=== PATIENT | male | born 1985 | race Hispanic/Latino ===

== ENCOUNTER 2018-09-09 20:01 | Emergency (ER) | payer BC ==
[~2018-09-09] VITALS: Ht 170.2 cm; Wt 96.6 kg
--- OUTSIDE RECORDS SUMMARY | 2018-09-09 20:04 | XMS REPORT | Clinical Summary ---
Author Author [facility] Address Unknown Phone Unavailable Care Team Providers Care Operational Risk Analyst Name Role Phone Amador Samayoa MD PCP Allergies Active Allergy Reactions Severity Noted Date Comments Penicillins 03/31/2018 Patient does not know what kind of allergy.Pt states that as per his MOM he is allergic to PCN. Current Medications Prescription Sig. Disp. Refills Start End Date Status Date pioglitazone (ACTOS) 30 Take 1 tablet (30 mg 30 tablet 0 04/02/20 05/02/20 MG tablet total) by mouth daily for 18 18 30 days. insulin DETEMIR (LEVEMIR) Inject 12 Units under the 3.6 mL 2 04/02/20 05/02/20 100 unit/mL (3 mL) skin nightly for 30 days. 18 18 insulin pen pen needle, diabetic 31 1 Units nightly for 30 50 each 2 04/02/20 05/02/20 gauge x 3/16" needle days. 18 18 gemfibrozil (LOPID) 600 Take 1 tablet (600 mg 60 tablet 0 04/02/20 05/02/20 MG tablet total) by mouth 2 (two) 18 18 times a day before meals for 30 days. Active Problems Problem Noted Date Pancreatitis 03/31/2018 Encounters Date Type Specialty Care Team Description 04/15/2018 Consult Weight Management Asked, No Pcp Insulin-requiring or Amador Samayoa, dependent type II diabetes mellitus Carmela Marley RD (Primary Dx); Appendicitis, unspecified appendicitis type; Hyperglyceridemia 04/02/2018 Patient Quality Monika Cuevas, [facility] Outreach 03/31/2018 [facility] General Internal Medicine Christiano Stewart MD Alcohol- induced acute - Encounter pancreatitis without 04/02/2018 infection or necrosis (Primary Dx); Type 2 diabetes mellitus without complication, without long-term current use of insulin after 09/08/2017 Family History Medical History Relation Name Comments Diabetes Father Diabetes Mother Relation Name Status Comments Father Mother Social History Tobacco Use Types Packs/Day Years Used Date Light Tobacco Smoker 14 Smokeless Tobacco: Never Used Tobacco Cessation: Counseling Given: Yes Comments: Smoke 1 pack/2 weeks Alcohol Use Drinks/Week oz/Week Comments Yes 50 beers/week( on the weekend) Sex Assigned at Date Recorded Not on file Last Filed Vital Signs Vital Sign Reading Time Taken Blood Pressure 142/90 04/02/2018 11:21 AM CDT Pulse 88 04/02/2018 11:21 AM CDT Temperature 36.3 C (97.4 F) 04/02/2018 11:21 AM CDT Respiratory Rate 15 04/02/2018 11:21 AM CDT Oxygen Saturation 99% 04/02/2018 11:21 AM CDT Inhaled Oxygen - - Concentration Weight 95.8 kg (211 lb 1.6 oz) 04/15/2018 11:26 AM CDT Height 170.2 cm (5' 7") 04/15/2018 11:26 AM CDT Body Mass Index 33.06 04/15/2018 11:26 AM CDT Plan of Treatment Health Maintenance Due Date Last Done Comments DIABETIC FOOT EXAM 1995 DIABETIC RETINAL EYE EXAM 1995 URINE MICROALBUMIN 1995 INFLUENZA VACCINE 06/22/2018 Goals Goal Patient Associated Recent Progress Patient-Stat Author Goal Type Problems ed? HM WM Monitoring General No Carmela Marley RD Note: 04/15/18 Active Will monitor blood glucose levels before meals and 2 hours after each meal HM WM Nutrition General No Carmela Marley RD Note: 04/15/18 Active Will consume 45-60 grams of carbohydrates at meals and 15 grams as needed as snacks if more than 5 hours between meals or feelings of hunger HM WM Taking Medications General No Carmela Marley RD Note: 04/15/18 Active Will continue to take his Actos and Levemir as ordered Procedures Procedure Name Priority Date/Time Associated Diagnosis Comments ZZESTIMATED GFR Timed 04/02/2018 Results for this 1:51 PM CDT procedure are in the results section. BASIC METABOLIC PANEL Timed 04/02/2018 Results for this 1:51 PM CDT procedure are in the results section. POC GLUCOSE Routine 04/02/2018 Results for this 11:25 AM CDT procedure are in the results section. POC GLUCOSE Routine 04/02/2018 Results for this 7:47 AM CDT procedure are in the results section. ZZESTIMATED GFR Routine 04/02/2018 Results for this 6:52 AM CDT procedure are in the results section. BASIC METABOLIC PANEL Routine 04/02/2018 Results for this 6:52 AM CDT procedure are in the results section. POC GLUCOSE Routine 04/02/2018 Results for this 4:05 AM CDT procedure are in the results section. POC GLUCOSE Routine 04/02/2018 Results for this 12:00 AM CDT procedure are in the results section. POC GLUCOSE Routine 04/01/2018 Results for this 7:50 PM CDT procedure are in the results section. POC GLUCOSE Routine 04/01/2018 Results for this 4:12 PM CDT procedure are in the results section. POC GLUCOSE Routine 04/01/2018 Results for this 11:56 AM CDT procedure are in the results section. ZZESTIMATED GFR Routine 04/01/2018 Results for this 9:33 AM CDT procedure are in the results section. BASIC METABOLIC PANEL Routine 04/01/2018 Results for this 9:33 AM CDT procedure are in the results section. HC COMPLETE BLD COUNT Routine 04/01/2018 Results for this W/AUTO DIFF 9:33 AM CDT procedure are in the results section. URINALYSIS, AUTOMATED Routine 04/01/2018 Results for this WITH MICROSCOPY 8:47 AM CDT procedure are in the results section. POC GLUCOSE Routine 04/01/2018 Results for this 8:23 AM CDT procedure are in the results section. POC GLUCOSE Routine 04/01/2018 Results for this 4:12 AM CDT procedure are in the results section. POC GLUCOSE Routine 03/31/2018 Results for this 11:34 PM CDT procedure are in the results section. CT ABDOMEN PELVIS WO Routine 03/31/2018 Results for this CONTRAST 8:55 PM CDT procedure are in the results section. LACTIC ACID LEVEL Timed 03/31/2018 Results for this 8:00 PM CDT procedure are in the results section. ZZESTIMATED GFR Timed 03/31/2018 Results for this 8:00 PM CDT procedure are in the results section. BASIC METABOLIC PANEL Timed 03/31/2018 Results for this 8:00 PM CDT procedure are in the results section. POC GLUCOSE Routine 03/31/2018 Results for this 7:58 PM CDT procedure are in the results section. POC GLUCOSE Routine 03/31/2018 Results for this 4:55 PM CDT procedure are in the results section. URINE DRUGS OF ABUSE Routine 03/31/2018 Results for this SCREEN 4:05 PM CDT procedure are in the results section. HEMOGLOBIN A1C Routine 03/31/2018 Results for this 2:40 PM CDT procedure are in the results section. BLOOD CULTURE, AEROBIC & Routine 03/31/2018 Results for this ANAEROBIC 2:40 PM CDT procedure are in the results section. LACTIC ACID LEVEL Routine 03/31/2018 Results for this 2:30 PM CDT procedure are in the results section. B NATRIURETIC PEPTIDE Routine 03/31/2018 Results for this 2:30 PM CDT procedure are in the results section. PROTHROMBIN TIME WITH INR Routine 03/31/2018 Results for this 2:30 PM CDT procedure are in the results section. BLOOD CULTURE, AEROBIC & Routine 03/31/2018 Results for this ANAEROBIC 2:30 PM CDT procedure are in the results section. BETA HYDROXYBUTYRATE Routine 03/31/2018 Results for this 2:10 PM CDT procedure are in the results section. LIPASE LEVEL Routine 03/31/2018 Results for this 2:10 PM CDT procedure are in the results section. AMYLASE LEVEL Routine 03/31/2018 Results for this 2:10 PM CDT procedure are in the results section. ALCOHOL LEVEL, BLOOD Routine 03/31/2018 Results for this 2:10 PM CDT procedure are in the results section. ZZESTIMATED GFR Routine 03/31/2018 Results for this 2:10 PM CDT procedure are in the results section. THYROID STIMULATING Routine 03/31/2018 Results for this HORMONE 2:10 PM CDT procedure are in the results section. MAGNESIUM LEVEL Routine 03/31/2018 Results for this 2:10 PM CDT procedure are in the results section. LIPID PANEL Routine 03/31/2018 Results for this 2:10 PM CDT procedure are in the results section. COMPREHENSIVE METABOLIC Routine 03/31/2018 Results for this PANEL 2:10 PM CDT procedure are in the results section. CREATINE KINASE, TOTAL Routine 03/31/2018 Results for this (CPK) 2:10 PM CDT procedure are in the results section. HC COMPLETE BLD COUNT Routine 03/31/2018 Results for this W/AUTO DIFF 2:10 PM CDT procedure are in the results section. after 09/08/2017 Results * Estimated GFR (04/02/2018 1:51 PM) Only the most recent of 5 results within the time period is included. GFR Non Af Amer >90 mL/min/1.73 m2 [facility] DEPARTMENT OF PATHOLOGY AND [place] [facility] GFR Af Amer >90 mL/min/1.73 m2 [facility] DEPARTMENT OF Comment: PATHOLOGY AND Chronic kidney disease: <60 [facility] mL/min/1.73m2 Kidney failure: <15 mL/min/1.73m2 The estimated GFR is calculated from the IDMS-traceable Modification of Diet in Renal Disease Equation. The accuracy of the calculation is poor when the creatinine is normal. Calculated values >90 mL/min/1.73m2 are not reported. This equation has not been validated in children (<18 years), women, the elderly (>70 years), or ethnic groups other than Caucasians and Americans. Specimen Plasma specimen Performing Organization Address City/State/Zipcode Phone Number [place] [address] [place] [address] PATHOLOGY AND [place] [facility] * Basic metabolic panel (04/02/2018 1:51 PM) Only the most recent of 4 results within the time period is included. Sodium 138 135 - 148 mEq/L [facility] DEPARTMENT OF PATHOLOGY AND [place] [facility] Potassium 4.5 3.5 - 5.0 mEq/L [facility] DEPARTMENT OF PATHOLOGY AND [place] [facility] Chloride 98 98 - 112 mEq/L [facility] DEPARTMENT OF PATHOLOGY AND [place] [facility] CO2 29 24 - 31 mEq/L [facility] DEPARTMENT OF PATHOLOGY AND [place] [facility] Anion gap 11 7 - 15 mEq/L [facility] DEPARTMENT OF Comment: PATHOLOGY AND Starting from February [facility] , anion gap calculation no longer incorporates potassium. Please note the change. BUN 5 (L) 6 - 20 mg/dL [facility] DEPARTMENT OF PATHOLOGY AND [place] [facility] Creatinine 0.7 0.7 - 1.2 mg/dL [facility] DEPARTMENT OF PATHOLOGY AND [place] [facility] Glucose 229 (H) 65 - 99 mg/dL [facility] DEPARTMENT OF PATHOLOGY AND GENOMIC MEDICINE Calcium 9.6 8.3 - 10.2 mg/dL [facility] OF PATHOLOGY AND GENOMIC MEDICINE Specimen Plasma specimen Performing Organization Address City/[facility]/Zipcode Phone Number [facility] [address] [place] [address] PATHOLOGY AND GENOMIC MEDICINE * POC glucose (04/02/2018 11:25 AM) Only the most recent of 12 results within the time period is included. POC glucose 175 (H) 65 - 99 mg/dL [facility] DEPARTMENT OF Comment: PATHOLOGY AND Meter ID: [id number] GENOMIC MEDICINE Rn Concurrent Review: Sammy Thornton Performing Organization Address City/[facility]/Zipcode Phone Number [facility] [address] [place] [address] PATHOLOGY [facility] [place] [facility] * CBC with platelet and differential (04/01/2018 9:33 AM) Only the most recent of 2 results within the time period is included. WBC 12.14 (H) 4.50 - 11.00 k/uL [facility] DEPARTMENT OF PATHOLOGY AND GENOMIC MEDICINE RBC 4.88 4.40 - 6.00 m/uL [facility] DEPARTMENT OF PATHOLOGY AND GENOMIC MEDICINE HGB 14.7 14.0 - 18.0 g/dL [facility] DEPARTMENT OF PATHOLOGY AND GENOMIC MEDICINE HCT 42.2 41.0 - 51.0 % [facility] DEPARTMENT OF PATHOLOGY AND GENOMIC MEDICINE MCV 86.5 82.0 - 100.0 fL [facility] DEPARTMENT OF PATHOLOGY AND GENOMIC MEDICINE MCH 30.1 27.0 - 34.0 pg [facility] DEPARTMENT OF PATHOLOGY AND GENOMIC MEDICINE MCHC 34.8 31.0 - 37.0 g/dL [facility] DEPARTMENT OF PATHOLOGY AND GENOMIC MEDICINE RDW - SD 45.7 37.0 - 55.0 fL [facility] DEPARTMENT OF PATHOLOGY AND GENOMIC MEDICINE MPV 11.2 8.8 - 13.2 fL [facility] DEPARTMENT OF PATHOLOGY AND GENOMIC MEDICINE Platelet count 171 150 - 400 k/uL [facility] DEPARTMENT OF PATHOLOGY AND GENOMIC MEDICINE Nucleated RBC 0.00 /100 WBC [facility] DEPARTMENT OF PATHOLOGY AND GENOMIC MEDICINE Neutrophils 74.1 (H) 39.0 - 69.0 % [facility] DEPARTMENT OF PATHOLOGY AND GENOMIC MEDICINE Lymphocytes 14.4 (L) 25.0 - 45.0 % [facility] DEPARTMENT OF PATHOLOGY AND GENOMIC MEDICINE Monocytes 9.1 0.0 - 10.0 % [facility] DEPARTMENT OF PATHOLOGY AND GENOMIC MEDICINE Eosinophils 1.4 0.0 - 5.0 % [facility] DEPARTMENT OF PATHOLOGY AND GENOMIC MEDICINE Basophils 0.3 0.0 - 1.0 % [facility] DEPARTMENT OF PATHOLOGY AND GENOMIC MEDICINE Specimen Blood Performing Organization Address [facility]/Zipcode Phone Number [address] [place] [phone] PATHOLOGY AND GENOMIC MEDICINE * Urinalysis, automated with microscopy (04/01/2018 8:47 AM) Color, UA Yellow [facility] DEPARTMENT OF PATHOLOGY AND GENOMIC MEDICINE Appearance, UA Clear [facility] DEPARTMENT OF PATHOLOGY AND GENOMIC MEDICINE Specific gravity, UA 1.023 1.001 - 1.035 [facility] DEPARTMENT OF PATHOLOGY AND GENOMIC MEDICINE pH, UA 5.0 5.0 - 8.5 [facility] DEPARTMENT OF PATHOLOGY AND GENOMIC MEDICINE Protein, UA 2+ (A) Negative [facility] DEPARTMENT OF PATHOLOGY AND GENOMIC MEDICINE Glucose, UA 3+ (A) Negative [facility] DEPARTMENT OF PATHOLOGY AND GENOMIC MEDICINE Ketones, UA 2+ (A) Negative [facility] DEPARTMENT OF PATHOLOGY AND GENOMIC MEDICINE Bilirubin, UA Negative Negative [facility] DEPARTMENT OF PATHOLOGY AND GENOMIC MEDICINE Blood, UA Small (A) Negative [facility] DEPARTMENT OF PATHOLOGY AND GENOMIC MEDICINE Nitrite, UA Negative Negative [facility] DEPARTMENT OF PATHOLOGY AND GENOMIC MEDICINE Urobilinogen, UA Negative <2.0 [facility] DEPARTMENT OF PATHOLOGY AND GENOMIC MEDICINE Leukocyte esterase, UA Negative Negative [facility] DEPARTMENT OF PATHOLOGY AND GENOMIC MEDICINE Epithelial cells, UA Few /HPF [facility] DEPARTMENT OF PATHOLOGY AND GENOMIC MEDICINE Round epithelial cells, Few 0 - 1 /HPF [facility] DEPARTMENT OF UA PATHOLOGY AND GENOMIC MEDICINE WBC, UA 0-5 0 - 1 /HPF [facility] DEPARTMENT OF PATHOLOGY AND GENOMIC MEDICINE RBC, UA 0-5 0 - 5 /HPF [facility] DEPARTMENT OF PATHOLOGY AND GENOMIC MEDICINE Bacteria, UA Trace None seen [facility] DEPARTMENT OF PATHOLOGY AND GENOMIC MEDICINE Yeast, UA None seen [facility] DEPARTMENT OF PATHOLOGY AND GENOMIC MEDICINE Yeast with pseudohyphae, None seen [facility] DEPARTMENT [facility] PATHOLOGY AND GENOMIC MEDICINE Specimen Urine Performing Organization Address [facility]/Zipcode Phone Number [address] [place] [address] PATHOLOGY AND GENOMIC MEDICINE * CT Abdomen Pelvis Wo Contrast (03/31/2018 8:55 PM) Narrative Performed At EXAMINATION:CT ABDOMEN PELVIS WO CONTRAST RADIANT CLINICAL HISTORY: 32 years Malepancreatitis COMPARISON:None. TECHNIQUE:CT of the abdomen and pelvis without intravenous contrast. Absence of intravenous contrast decreases sensitivity for detection of focal lesions and vascular pathology. CT imaging was performed with iterative reconstruction techniques and/or automated exposure control to reduce radiation dose. FINDINGS: LOWER THORAX: 1. Lung bases are clear. ABDOMEN: 1.Prominent fatty infiltration of the liver. Liver is enlarged measuring 18.6 cm in the right midclavicular line. 2.Gallbladder appears slightly dense, nondistended. Spleen, adrenal glands and kidneys are normal in appearance. 3.There is abnormal fatty stranding in the anterior perirenal space surrounding the body and tail of the pancreas. No peripancreatic fluid collection. 4.Absence of oral contrast decreases sensitivity for detection of bowel pathology. The appendix is normal. There is no bowel obstruction. 5.Abdominal aorta is nonaneurysmal. No abdominal adenopathy or free air. PELVIS: 1.Dense bladder, probably related to previous intravenous contrast. Please correlate. There is no pelvic ascites or adenopathy. 2.Osseous structures are intact. IMPRESSION: 1.Findings consistent with acute pancreatitis without pseudocyst. 2.Dense gallbladder. This may be related to vicarious excretion of contrast or sludge. Given the pancreatitis, consider gallbladder ultrasound to evaluate for stones. 3.Enlarged fatty liver. 4.Additional findings as above. [id number] Procedure Note Interface, Radiology Results Incoming - 03/31/2018 10:24 PM CDT EXAMINATION: CT ABDOMEN PELVIS WO CONTRAST CLINICAL HISTORY: 32 years Male pancreatitis COMPARISON: None. TECHNIQUE: CT of the abdomen and pelvis without intravenous contrast. Absence of intravenous contrast decreases sensitivity for detection of focal lesions and vascular pathology. CT imaging was performed with iterative reconstruction techniques and/or automated exposure control to reduce radiation dose. FINDINGS: LOWER THORAX: 1. Lung bases are clear. ABDOMEN: 1. Prominent fatty infiltration of the liver. Liver is enlarged measuring 18.6 cm in the right midclavicular line. 2. Gallbladder appears slightly dense, nondistended. Spleen, adrenal glands and kidneys are normal in appearance. 3. There is abnormal fatty stranding in the anterior perirenal space surrounding the body and tail of the pancreas. No peripancreatic fluid collection. 4. Absence of oral contrast decreases sensitivity for detection of bowel pathology. The appendix is normal. There is no bowel obstruction. 5. Abdominal aorta is nonaneurysmal. No abdominal adenopathy or free air. PELVIS: 1. Dense bladder, probably related to previous intravenous contrast. Please correlate. There is no pelvic ascites or adenopathy. 2. Osseous structures are intact. IMPRESSION: 1. Findings consistent with acute pancreatitis without pseudocyst. 2. Dense gallbladder. This may be related to vicarious excretion of contrast or sludge. Given the pancreatitis, consider gallbladder ultrasound to evaluate for stones. 3. Enlarged fatty liver. 4. Additional findings as above. [id number] Performing Organization Address City/State/Zipcode Phone Number [facility] [address] [place] [address] * Lactic acid level (03/31/2018 8:00 PM) Only the most recent of 2 results within the time period is included. Lactic acid 1.3 0.5 - 2.2 mmol/L [facility] DEPARTMENT OF PATHOLOGY AND GENOMIC MEDICINE Specimen Plasma specimen Performing Organization Address City/State/Zipcode Phone Number [address] [place] [address] PATHOLOGY AND GENOMIC MEDICINE * Urine drugs of abuse screen (03/31/2018 4:05 PM) Amphetamine screen, urine Negative [facility] DEPARTMENT OF PATHOLOGY AND GENOMIC MEDICINE Methamphetamine screen, Negative [facility] DEPARTMENT OF urine PATHOLOGY AND GENOMIC MEDICINE Barbiturate screen, urine Negative [facility] DEPARTMENT OF PATHOLOGY AND GENOMIC MEDICINE Benzodiazepine screen, Negative [facility] DEPARTMENT OF urine PATHOLOGY AND GENOMIC MEDICINE Cocaine screen, urine Negative [facility] DEPARTMENT OF PATHOLOGY AND GENOMIC MEDICINE Methadone screen, urine nt [facility] DEPARTMENT OF PATHOLOGY AND GENOMIC MEDICINE Opiates screen, urine Positive (A) [facility] DEPARTMENT OF PATHOLOGY AND GENOMIC MEDICINE Phencyclidine screen, nt [facility] DEPARTMENT OF urine PATHOLOGY AND GENOMIC MEDICINE Cannabinoid screen, urine Negative [facility] DEPARTMENT OF PATHOLOGY AND GENOMIC MEDICINE Tricyclic screen, urine nt [facility] DEPARTMENT OF Comment: PATHOLOGY AND Drug screen minimum [facility] MEDICINE concentration of detectability Amphetamines 1000 ng/mL Methamphetamines 1000 ng/mL Barbiturates 300 ng/mL Benzodiazepines 300 ng/mL Cocaine 300 ng/mL Methadone 300 ng/mL Opiates 300 ng/mL Phencyclidine 25 ng/mL Cannabinoids 50 ng/mL Tricyclics 1000 ng/mL Negative test results indicates presumptive evidence of lack of clinically significant drug concentration in this urine specimen. Positive test results are presumptive evidence of clinically significant drug concentration in this urine specimen. Testing performed for medical purposes only. Specimen Urine Performing Organization Address [facility] Phone Number [facility] [id number] [place] [address] [place] [address] PATHOLOGY AND GENOMIC MEDICINE * Blood culture, aerobic & anaerobic (03/31/2018 2:40 PM) Only the most recent of 2 results within the time period is included. Blood culture isolate No growth after 5 days of [facility] DEPARTMENT OF incubation. PATHOLOGY AND Comment: GENOMIC MEDICINE Specimen Information Specimen Source: Blood Specimen Site: left lower arm Specimen Blood Performing Organization Address [facility] Phone Number [facility] DEPARTMENT [address] [place] [id number] PATHOLOGY AND GENOMIC MEDICINE * Hemoglobin A1c (03/31/2018 2:40 PM) Hemoglobin A1C 10.0 (H) 4.0 - 6.0 % [facility] DEPARTMENT OF Comment: PATHOLOGY AND GENOMIC MEDICINE Less than 6% - Goal of therapy for Type II Diabetes Less than 7%-Goal of therapy for Type I Diabetes Less than 8%-Accepta ble control for Type I or Type II Diabetes Greater than 8%-Unacceptabl e control; action indicated. ([id number]) Specimen Blood Performing Organization Address [facility] Phone Number [facility] DEPARTMENT [address] [address] PATHOLOGY AND GENOMIC MEDICINE * Prothrombin time with INR (03/31/2018 2:30 PM) Prothrombin time 13.6 12.0 - 15.0 sec [facility] DEPARTMENT OF PATHOLOGY AND GENOMIC MEDICINE INR 1.0 [facility] DEPARTMENT OF Comment: PATHOLOGY AND The International Normalized GENOMIC MEDICINE Ratio (INR) is a therapeutic monitoring tool for patients who are stable on oral anticoagulant therapy. An INR of 2.0-3.0 is suggested for deep vein thrombosis/pulmonary embolism. Specimen Blood Performing Organization Address [facility] Phone Number [address] [place] [address] PATHOLOGY AND GENOMIC MEDICINE * B natriuretic peptide (03/31/2018 2:30 PM) BNP 1 0 - 100 pg/mL [facility] DEPARTMENT OF PATHOLOGY AND GENOMIC MEDICINE Specimen Blood Performing Organization Address [facility] Number [address] [place] [address] PATHOLOGY AND GENOMIC MEDICINE * Beta hydroxybutyrate (03/31/2018 2:10 PM) Beta hydroxybutyrate 6.13 (H) 0.02 - 0.27 mmol/L [facility] DEPARTMENT OF PATHOLOGY AND GENOMIC MEDICINE Specimen Serum Performing Organization Address [facility] [place] [address] PATHOLOGY AND GENOMIC MEDICINE * Thyroid stimulating hormone (03/31/2018 2:10 PM) TSH 0.83 0.27 - 4.20 uIU/mL [facility] DEPARTMENT OF PATHOLOGY AND GENOMIC MEDICINE Specimen Plasma specimen Performing Organization Address [facility] Number [address] [place] [address] PATHOLOGY AND GENOMIC MEDICINE * Magnesium level (03/31/2018 2:10 PM) Magnesium 1.9 1.6 - 2.6 mg/dL [facility] DEPARTMENT OF PATHOLOGY AND GENOMIC MEDICINE Specimen Plasma specimen Performing Organization Address [facility] Number [address] [place] [address] PATHOLOGY AND GENOMIC MEDICINE * Lipase level (03/31/2018 2:10 PM) Lipase 127 (H) 13 - 60 U/L [facility] DEPARTMENT OF PATHOLOGY AND GENOMIC MEDICINE Specimen Plasma specimen Performing Organization Address [facility] Number [address] [place] [address] PATHOLOGY AND GENOMIC MEDICINE * Creatine kinase, total (CPK) (03/31/2018 2:10 PM) Creatine kinase 40 39 - 308 U/L [facility] DEPARTMENT OF PATHOLOGY AND GENOMIC MEDICINE Specimen Plasma specimen Performing Organization Address [facility] Number [address] [place] [address] PATHOLOGY AND GENOMIC MEDICINE * Amylase level (03/31/2018 2:10 PM) Amylase 96 (H) 13 - 73 U/L [facility] DEPARTMENT OF PATHOLOGY AND GENOMIC MEDICINE Specimen Plasma specimen Performing Organization Address City/State/[facility] Phone Number [facility] [address] [place] [address] PATHOLOGY AND [facility] MEDICINE * Alcohol level, blood (03/31/2018 2:10 PM) Alcohol None Detected mg/dL [facility] DEPARTMENT OF Comment: PATHOLOGY AND Normal GENOMIC MEDICINE None Detected Legal Intoxication in [place]80 mg/dL (0.08%) - Whole Blood Toxic Concentration 200 mg/dL (0.2%) Potentially Fatal3 50 - 500 mg/dL (0.35 - 0.5%) Alcohol percent None Detected % [facility] DEPARTMENT OF PATHOLOGY AND GENOMIC MEDICINE Specimen Plasma specimen Performing Organization Address City/[facility] Phone Number [place] [address] [place] [address] PATHOLOGY AND [facility] MEDICINE * Lipid panel (03/31/2018 2:10 PM) Cholesterol 292 (H) <200 mg/dL [facility] DEPARTMENT OF PATHOLOGY AND GENOMIC MEDICINE Triglycerides 1,577 (A) <150 mg/dL [facility] DEPARTMENT OF PATHOLOGY AND GENOMIC MEDICINE HDL cholesterol 16 (L) >40 mg/dL [facility] DEPARTMENT OF PATHOLOGY AND GENOMIC MEDICINE LDL cholesterol 30Comment: Result obtained by <100 mg/dL [facility] DEPARTMENT OF direct LDL measurement PATHOLOGY AND GENOMIC MEDICINE Lipid panel SeeBelow [facility] DEPARTMENT OF interpretation Comment: PATHOLOGY AND Total Cholesterol GENOMIC MEDICINE (mg/dL) <200 Desirable 200-239Borderline -high >=240High Triglycerides (mg/dL) <150 Normal 150-199Borderline -high 200-499High >=500Very high HDL Cholesterol (mg/dL) <40Low (male) <40Low (female) LDL Cholesterol (mg/dL) <100 Optimal 100-129Near or above optimal 130-159Borderline -high 160-189High >=190Very high Risk Catergories that modify LDL goals. Risk Catergories LDL goal (mg/dL) CHD and CHD risk equivalent<100 (10-year risk >20%) Multiple (2+) risk factors <130 (10-year risk=<20%) 0-1 risk factors <160 (<10-year risk) Defining levels of lipids in metabolic syndrome Triglycerides >=150 mg/dL HDL Cholesterol Men <40 mg/dL Women <40 mg/dL Non-HDL cholesterol is a second target for therapy in persons with high triglycerides (>=200 mg/dL) Specimen Plasma specimen Performing Organization Address City/State/Zipcode Phone Number [facility] [address] [place] [address] PATHOLOGY AND GENOMIC MEDICINE * Comprehensive metabolic panel (03/31/2018 2:10 PM) Sodium 134 (L) 135 - 148 mEq/L [facility] DEPARTMENT OF PATHOLOGY AND GENOMIC MEDICINE Potassium 4.3 3.5 - 5.0 mEq/L [facility] DEPARTMENT OF PATHOLOGY AND GENOMIC MEDICINE Chloride 99 98 - 112 mEq/L [facility] DEPARTMENT OF PATHOLOGY AND GENOMIC MEDICINE CO2 14 (LL) 24 - 31 mEq/L [facility] DEPARTMENT OF Comment: PATHOLOGY AND Results called to and read [facility] back by ALLISON AN,[id number] 815:40 by ANTHONY. Anion gap 21 (H) 7 - 15 mEq/L [facility] DEPARTMENT OF Comment: PATHOLOGY AND Starting from February [facility] , anion gap calculation no longer incorporates potassium. Please note the change. BUN 7 6 - 20 mg/dL [facility] DEPARTMENT OF PATHOLOGY AND GENOMIC MEDICINE Creatinine 0.7 0.7 - 1.2 mg/dL [facility] DEPARTMENT OF PATHOLOGY AND GENOMIC MEDICINE Glucose 240 (H) 65 - 99 mg/dL [facility] DEPARTMENT OF PATHOLOGY AND GENOMIC MEDICINE Calcium 8.6 8.3 - 10.2 mg/dL [facility] DEPARTMENT OF PATHOLOGY AND GENOMIC MEDICINE Protein 7.3 6.3 - 8.3 g/dL [facility] DEPARTMENT OF Comment: PATHOLOGY AND [place] [facility] MEDICINE 4.6-7.0 g/dL 1 week 4.4-7.6 g/dL 7 months-1year 5.1-7.3 g/dL 1-2 years5.6-7 .5 g/dL >3 years6.0-8 .0 g/dL 18-150 6.3-8.3 g/dL Albumin 4.1 3.5 - 5.0 g/dL [facility] DEPARTMENT OF PATHOLOGY AND GENOMIC MEDICINE A/G ratio 1.3 0.7 - 3.8 [facility] DEPARTMENT OF PATHOLOGY AND GENOMIC MEDICINE Alkaline phosphatase 87 40 - 129 U/L [facility] DEPARTMENT OF PATHOLOGY AND GENOMIC MEDICINE AST NPComment: DUE TO SPECIMEN 10 - 50 U/L [facility] DEPARTMENT OF LIPEMIA UNABLE TO ANALYZE PATHOLOGY AND GENOMIC MEDICINE ALT LIGHTING ENGINEER 5 - 50 U/L [facility] DEPARTMENT OF PATHOLOGY AND GENOMIC MEDICINE Total bilirubin 0.5 0.0 - 1.2 mg/dL [facility] DEPARTMENT OF PATHOLOGY AND GENOMIC MEDICINE Specimen Plasma specimen Performing Organization Address City/State/Zipcode Phone Number [place] [address] [place] [address] PATHOLOGY AND GENOMIC MEDICINE after 09/08/2017 Insurance Payer Benefit Subscriber ID Type Phone Address Plan / Group BCBS BCBS OUT xxxxxxxxxxxxxxx PPO OF STATE [place] [facility] [address] Home:
[2018-09-09] MEDS ORDERED: KETOROLAC TROMETHAMINE 30 MG/ML VIAL IV STA ×2 (20:22→20:30)
[2018-09-09] MEDS ORDERED: ACETAMINOPHEN 1000 MG/100 ML 100 ML IV ONE (20:25)
[2018-09-09] MEDS ORDERED: ACETAMINOPHEN 1000 MG/100 ML IV STA (20:30)
[2018-09-09 20:45] LABS: BASOPHILS # (AUTO) 0.1 (0.0-0.1); BASOPHILS % 0.4 % (0.0-1.0); EOSINOPHILS % 0.3 % (0.0-6.0); HEMATOCRIT 40.5 % (38.2-49.6); HEMOGLOBIN 13.6 g/dL (14.0-18.0); LYMPHOCYTES # (AUTO) 1.8 (1.0-3.2); LYMPHOCYTES % 15.3 % (18.0-39.1); MEAN CORPUSCULAR HEMOGLOBIN 29.2 pg (28-32); MEAN CORPUSCULAR HGB CONC 33.6 g/dL (31-35); MEAN CORPUSCULAR VOLUME 87.1 fL (81-99); MONOCYTES # (AUTO) 1.1 (0.2-0.8); MONOCYTES % 9.6 % (4.4-11.3); NEUTROPHILS # (AUTO) 8.4 (2.1-6.9); NEUTROPHILS % 73.2 % (38.7-80.0); PLATELET COUNT 232 x10e3/uL (140-360); RED BLOOD COUNT 4.65 x10e6/uL (4.3-5.7); RED CELL DISTRIBUTION WIDTH 14.5 % (11.7-14.4)
[2018-09-09 20:52] LABS: STREPTOCOCCUS GRP A ANTIGEN NEGATIVE (NEGATIVE)
[2018-09-09 21:07] LABS: ALANINE AMINOTRANSFERASE 26 IU/L (0-55); ALBUMIN 3.3 g/dL (3.5-5.0); ALBUMIN/GLOBULIN RATIO 0.7 (0.8-2.0); ALKALINE PHOSPHATASE 76 IU/L (40-150); AMYLASE 36 U/L (25-125); ANION GAP 19.9 mmol/L (8-16); BLOOD UREA NITROGEN 13 mg/dL (7-26); BUN/CREATININE RATIO 14 (6-25); CALCIUM 10.1 mg/dL (8.4-10.2); CARBON DIOXIDE 21 mmol/L (22-29); CHLORIDE 99 mmol/L (98-107); CREATININE, SERUM 0.95 mg/dL (0.72-1.25); EST GLOMERULAR FILTRATION RATE > 60 ML/MIN (60-); GLUCOSE 119 mg/dL (74-118); INFLUENZAE A&B ANTIGEN (RAPID) NEGATIVE (NEGATIVE); LIPASE 19 U/L (8-78); POTASSIUM 3.9 mmol/L (3.5-5.1); SODIUM 136 mmol/L (136-145)
--- NOTE | 2018-09-09 21:08 | Diagnostic Imaging Report ---
EXAMINATION: CHEST 2 VIEWS INDICATION: Fever, shortness of breath COMPARISON: None FINDINGS: TUBES and LINES: None. LUNGS: Lungs are not well inflated. Left perihilar and right lower lobe airspace opacities with air bronchogram compatible with multifocal section. PLEURA: No pleural effusion or pneumothorax. HEART AND MEDIASTINUM: The cardiomediastinal silhouette is unremarkable. BONES AND SOFT TISSUES: No acute osseous lesion. Soft tissues are unremarkable. UPPER ABDOMEN: No free air under the diaphragm. IMPRESSION: 1. Findings are compatible with multifocal left perihilar and right lower lobe pneumonia. Follow-up until resolution after treatment is recommended. Signed by: Dr. Dg Hyatt M.D. on 09/09/2018 9:04 PM
[2018-09-09 21:18] LABS: ERYTHROCYTE SEDIMENTATION RATE 87 mm/hr (0-13)
[2018-09-09] MEDS ORDERED: LEVOFLOXACIN 500 MG TAB PO ONE (21:30)
[2018-09-09] MEDS ORDERED: CEFTRIAXONE SOD 1 GM VIAL INJ ONE (21:30)
[2018-09-09] MEDS ORDERED: SODIUM CHLORIDE 0.9% 1000ML 1,000 ML IV SCH (21:45)
[2018-09-09] MEDS ORDERED: LEVOFLOXACIN 250 MG TAB ONE (21:52)
== END 2018-09-09 22:43 | disposition home or self-care (01) ==
LOC: ER 20:01
DX: R50.9 Fever, unspecified (principal); R05 Cough; J15.9 Unspecified bacterial pneumonia; R53.83 Other fatigue
CPT/HCPCS: 36415; 71046; 80053; 82150; 83518; 83690; 85025; 85651; 87040; 87070; 87400; 96365; 96374; 99284; J0696; J1885; J7030

== ENCOUNTER 2019-01-07 22:44 | Inpatient (IN) | payer BC ==
[~2019-01-07] VITALS: Ht 167.6 cm; Wt 95.7 kg
[2019-01-07] MEDS ORDERED: PANTOPRAZOLE 40 MG 10ML VIAL IV STA (22:47)
[2019-01-07] MEDS ORDERED: SODIUM CHLORIDE 0.9% 1000ML 1,000 ML IV STA (22:47)
[2019-01-07] MEDS ORDERED: ONDANSETRON HCL INJ 2MG/ML 2ML 2 MG/ML VIAL IV STA (22:47)
[2019-01-07] MEDS ORDERED: MORPHINE SULFATE INJ 4 MG/ML INJ 1ML IV STA (22:47)
--- OUTSIDE RECORDS SUMMARY | 2019-01-07 22:47 | XMS REPORT ---
Author [facility] Address Unknown Phone Unavailable Care Team Providers Care Lab Director Name Role Phone Gabriel ASGE Unavailable Unavailable Problems This patient has no known problems. Allergies, Adverse Reactions, Alerts This patient has no known allergies or adverse reactions. Medications This patient has no known medications. Results Test Description Test Time Test Comments Text Results Atomic Results Result Comments CHEST 2 VIEWS 2018-09-09 21:04:00 [place] [address] Patient Name: MARIO CLEVELAND MR #: [id number] : 1985 Age/Sex: 32/M Req #: [id number] Adm Physician: Ordered by: ATTILA SAGE MD Report #: [id number] Location: ER Room/Bed: Procedure: [id number] DX/CHEST 2 VIEWS Exam Date: Exam Time: REPORT STATUS: Signed EXAMINATION: CHEST 2 VIEWS INDICATION: Fever, shortness of breath COMPARISON: None FINDINGS: TUBES and LINES: None. LUNGS: Lungs are not well inflated. Left perihilar and right lower lobe airspace opacities with air bronchogram compatible with multifocal section. PLEURA: No pleural effusion or pneumothorax. HEART AND MEDIASTINUM: The cardiomediastinal silhouette is unremarkable. BONES AND SOFT TISSUES: No acute osseous lesion. Soft tissues are unremarkable. UPPER ABDOMEN: No free air under the diaphragm. IMPRESSION: 1. Findings are compatible with multifocal left perihilar and right lower lobe pneumonia. Follow-up until resolution after treatment is recommended. Signed by: Dr. Dg Hyatt M.D. on 09/09/2018 9:04 PM Dictated By: DG MAGALLON MD 03 Transcribed By: WILLY on 09/09/182103 COPY TO: ATTILA SAGE MD
--- OUTSIDE RECORDS SUMMARY | 2019-01-07 22:47 | XMS REPORT | Clinical Summary ---
Author Author [facility] Address Unknown Phone Unavailable Care Team Providers Care Manager Strategic Name Role Phone Amador Samayoa MD PCP Allergies Comments Active Allergy Reactions Severity Noted Date Patient does not know what kind of allergy.Pt states that as per his MOM he is allergic to PCN. Penicillins 03/31/2018 Medications End Date Status Medication Sig Dispensed Refills Start Date 05/02/2018 pioglitazone (ACTOS) 30 Take 1 tablet 30 tablet 0 201 MG tablet (30 mg total) 8 by mouth daily for 30 days. 05/02/2018 insulin DETEMIR (LEVEMIR) Inject 12 3.6 mL 2 100 unit/mL (3 mL) Units under 8 insulin pen the skin nightly for 30 days. 05/02/2018 pen needle, diabetic 31 1 Units 50 each 2 gauge x 3/16" needle nightly for 8 30 days. 05/02/2018 gemfibrozil (LOPID) 600 Take 1 tablet 60 tablet 0 201 MG tablet (600 mg 8 total) by mouth 2 (two) times a day before meals for 30 days. 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); Type 2 diabetes mellitus without complication, without long-term current use of insulin 03/31/2018 [facility] General Internal Medicine - Encounter 04/02/2018 after 01/06/2018 Family History Medical History Relation Name Comments Diabetes Father Diabetes Mother Relation Name Status Comments Father Mother Social History Date Tobacco Use Types Packs/Day Years Used Light Tobacco Smoker 14 Smokeless Tobacco: Never Used Tobacco Cessation: Counseling Given: Yes Comments: Smoke 1 pack/2 weeks Alcohol Use Drinks/Week oz/Week Comments Yes 50 beers/week( on the weekend) Sex Assigned at Date Recorded Not on file Industry Job Start Date Occupation Not on file Not on file Not on file Travel End Travel History Travel Start No recent travel history available. Last Filed Vital Signs Time Taken Vital Sign Reading 04/02/2018 11:21 AM CDT Blood Pressure 142/90 04/02/2018 11:21 AM CDT Pulse 88 04/02/2018 11:21 AM CDT Temperature 36.3 C (97.4 F) 04/02/2018 11:21 AM CDT Respiratory Rate 15 04/02/2018 11:21 AM CDT Oxygen Saturation 99% - Inhaled Oxygen - Concentration 04/15/2018 11:26 AM CDT Weight 95.8 kg (211 lb 1.6 oz) 04/15/2018 11:26 AM CDT Height 170.2 cm (5' 7") 04/15/2018 11:26 AM CDT Body Mass Index 33.06 Plan of Treatment Health Maintenance Due Date Last Done Comments DIABETIC RETINAL EYE EXAM 1985 DIABETIC FOOT EXAM 1995 URINE MICROALBUMIN 1995 INFLUENZA VACCINE [...] his Actos and Levemir as ordered Procedures Comments Procedure Name Priority Date/Time Associated Diagnosis ZZESTIMATED GFR Timed 04/02/2018 1:51 PM CDT BASIC METABOLIC PANEL Timed 04/02/2018 1:51 PM CDT POC GLUCOSE Routine 04/02/2018 11:25 AM CDT POC GLUCOSE Routine 04/02/2018 7:47 AM CDT ZZESTIMATED GFR Routine 04/02/2018 6:52 AM CDT BASIC METABOLIC PANEL Routine 04/02/2018 6:52 AM CDT POC GLUCOSE Routine 04/02/2018 4:05 AM CDT POC GLUCOSE Routine 04/02/2018 12:00 AM CDT POC GLUCOSE Routine 04/01/2018 7:50 PM CDT POC GLUCOSE Routine 04/01/2018 4:12 PM CDT POC GLUCOSE Routine 04/01/2018 11:56 AM CDT ZZESTIMATED GFR Routine 04/01/2018 9:33 AM CDT BASIC METABOLIC PANEL Routine 04/01/2018 9:33 AM CDT HC COMPLETE BLD COUNT Routine 04/01/2018 W/AUTO DIFF 9:33 AM CDT URINALYSIS, AUTOMATED Routine 04/01/2018 WITH MICROSCOPY 8:47 AM CDT POC GLUCOSE Routine 04/01/2018 8:23 AM CDT POC GLUCOSE Routine 04/01/2018 4:12 AM CDT POC GLUCOSE Routine 03/31/2018 11:[address] ABDOMEN PELVIS WO Routine 03/31/2018 CONTRAST 8:55 PM CDT LACTIC ACID LEVEL Timed 03/31/2018 8:00 PM CDT ZZESTIMATED GFR Timed 03/31/2018 8:00 PM CDT BASIC METABOLIC PANEL Timed 03/31/2018 8:00 PM CDT POC GLUCOSE Routine 03/31/2018 7:58 PM CDT POC GLUCOSE Routine 03/31/2018 4:55 PM CDT URINE DRUGS OF ABUSE Routine 03/31/2018 SCREEN 4:05 PM CDT HEMOGLOBIN A1C Routine 03/31/2018 2:40 PM CDT BLOOD CULTURE, AEROBIC & Routine 03/31/2018 ANAEROBIC 2:40 PM CDT LACTIC ACID LEVEL Routine 03/31/2018 2:30 PM CDT B NATRIURETIC PEPTIDE Routine 03/31/2018 2:30 PM CDT PROTHROMBIN TIME WITH INR Routine 03/31/2018 2:30 PM CDT BLOOD CULTURE, AEROBIC & Routine 03/31/2018 ANAEROBIC 2:30 PM CDT BETA HYDROXYBUTYRATE Routine 03/31/2018 2:10 PM CDT LIPASE LEVEL Routine 03/31/2018 2:10 PM CDT AMYLASE LEVEL Routine 03/31/2018 2:10 PM CDT ALCOHOL LEVEL, BLOOD Routine 03/31/2018 2:10 PM CDT ZZESTIMATED GFR Routine 03/31/2018 2:10 PM CDT THYROID STIMULATING Routine 03/31/2018 HORMONE 2:10 PM CDT MAGNESIUM LEVEL Routine 03/31/2018 2:10 PM CDT LIPID PANEL Routine 03/31/2018 2:10 PM CDT COMPREHENSIVE METABOLIC Routine 03/31/2018 PANEL 2:10 PM CDT CREATINE KINASE, TOTAL Routine 03/31/2018 (CPK) 2:10 PM CDT HC COMPLETE BLD COUNT Routine 03/31/2018 W/AUTO DIFF 2:10 PM CDT after 01/06/2018 Results * Estimated GFR (04/02/2018 1:51 PM CDT) Only the most recent of 5 results within the time period is included. GFR Non Af Amer >90 mL/min/1.73 m2 [facility] DEPARTMENT OF PATHOLOGY AND GENOMIC MEDICINE GFR Af Amer >90 mL/min/1.73 m2 [facility] DEPARTMENT OF Comment: PATHOLOGY AND Chronic kidney disease: <60 GENOMIC MEDICINE mL/min/1.73m2 Kidney failure: <15 mL/min/1.73m2 The estimated [...] specimen Performing Organization Address City/State/Zipcode Phone Number [facility] [place] [address] [place] [address] PATHOLOGY AND GENOMIC MEDICINE * Basic metabolic panel (04/02/2018 1:51 PM CDT) Only the most recent of 4 results within the time period is included. Sodium 138 135 - 148 mEq/L [facility] DEPARTMENT OF PATHOLOGY AND GENOMIC MEDICINE Potassium 4.5 3.5 - 5.0 mEq/L [facility] DEPARTMENT OF PATHOLOGY AND GENOMIC MEDICINE Chloride 98 98 - 112 mEq/L [facility] DEPARTMENT OF PATHOLOGY AND GENOMIC MEDICINE CO2 29 24 - 31 mEq/L [facility] DEPARTMENT OF PATHOLOGY AND GENOMIC MEDICINE Anion gap 11 7 - 15 mEq/L [facility] DEPARTMENT OF Comment: PATHOLOGY AND Starting from February [facility] , anion gap calculation no longer incorporates potassium. Please note the change. BUN 5 (L) 6 - 20 mg/dL [facility] DEPARTMENT OF PATHOLOGY AND GENOMIC MEDICINE Creatinine 0.7 0.7 - 1.2 mg/dL [facility] DEPARTMENT OF PATHOLOGY AND GENOMIC MEDICINE Glucose 229 (H) 65 - 99 mg/dL [facility] PATHOLOGY AND GENOMIC MEDICINE Calcium 9.6 8.3 - 10.2 mg/dL [facility] OF PATHOLOGY AND [place] MEDICINE Specimen Plasma specimen Performing Organization Address [facility] Phone Number [address] [place] [address] PATHOLOGY [facility] * POC glucose (04/02/2018 11:25 AM CDT) Only the most recent of 12 results within the time period is included. POC glucose 175 (H) 65 - 99 mg/dL [facility] DEPARTMENT OF Comment: PATHOLOGY AND Meter ID: [id number] [facility] Color Depositing Machine Tender: Sammy Thornton Performing Organization Address City/[facility] Phone Number [address] [place] [phone] [facility] * CBC with platelet and differential (04/01/2018 9:33 AM CDT) Only the most recent of 2 results within the time period is included. WBC 12.14 (H) 4.50 - 11.00 k/uL [facility] DEPARTMENT OF PATHOLOGY AND GENOMIC MEDICINE RBC 4.88 4.40 - 6.00 m/uL [facility] DEPARTMENT PATHOLOGY AND GENOMIC MEDICINE HGB 14.7 14.0 - 18.0 g/dL [facility] DEPARTMENT OF PATHOLOGY AND GENOMIC MEDICINE HCT 42.2 41.0 - 51.0 % [facility] DEPARTMENT OF PATHOLOGY AND GENOMIC MEDICINE MCV 86.5 82.0 - 100.0 fL [facility] DEPARTMENT OF PATHOLOGY AND GENOMIC MEDICINE MCH 30.1 27.0 - 34.0 pg [facility] DEPARTMENT OF PATHOLOGY AND GENOMIC MEDICINE MCHC 34.8 31.0 - 37.0 g/dL [facility] DEPARTMENT OF PATHOLOGY AND GENOMIC MEDICINE RDW - SD 45.7 37.0 - 55.0 fL [facility] OF PATHOLOGY AND GENOMIC MEDICINE MPV 11.2 8.8 - 13.2 fL [facility] DEPARTMENT OF PATHOLOGY AND GENOMIC MEDICINE Platelet count 171 150 - 400 k/uL [facility] DEPARTMENT OF PATHOLOGY AND GENOMIC MEDICINE Nucleated RBC 0.00 /100 WBC [facility] DEPARTMENT OF PATHOLOGY AND GENOMIC MEDICINE Neutrophils 74.1 (H) 39.0 - 69.0 % [facility] DEPARTMENT OF PATHOLOGY AND GENOMIC MEDICINE Lymphocytes 14.4 (L) 25.0 - 45.0 % [facility] DEPARTMENT OF PATHOLOGY AND GENOMIC MEDICINE Monocytes 9.1 0.0 - 10.0 % [facility] DEPARTMENT OF PATHOLOGY AND GENOMIC MEDICINE Eosinophils 1.4 0.0 - 5.0 % [facility] DEPARTMENT OF PATHOLOGY AND GENOMIC MEDICINE Basophils 0.3 0.0 - 1.0 % [facility] DEPARTMENT OF PATHOLOGY AND GENOMIC MEDICINE Specimen Blood Performing Organization Address City/State/Zipcode Phone Number [place] [phone] [place] [address] PATHOLOGY AND GENOMIC MEDICINE * Urinalysis, automated with microscopy (04/01/2018 8:47 AM CDT) Color, UA Yellow [facility] DEPARTMENT OF PATHOLOGY AND GENOMIC MEDICINE Appearance, UA Clear [facility] DEPARTMENT OF PATHOLOGY AND GENOMIC MEDICINE Specific gravity, UA 1.023 1.001 - 1.035 [facility] DEPARTMENT OF PATHOLOGY AND GENOMIC MEDICINE pH, UA 5.0 5.0 - 8.5 [facility] DEPARTMENT OF PATHOLOGY AND GENOMIC MEDICINE Protein, UA 2+ (A) Negative [facility] DEPARTMENT OF PATHOLOGY AND GENOMIC MEDICINE Glucose, UA 3+ (A) Negative [facility] DEPARTMENT OF PATHOLOGY AND GENOMIC MEDICINE Ketones, UA 2+ (A) Negative [facility] DEPARTMENT OF PATHOLOGY AND GENOMIC MEDICINE Bilirubin, UA Negative Negative [facility] DEPARTMENT OF PATHOLOGY AND GENOMIC MEDICINE Blood, UA Small (A) Negative [facility] DEPARTMENT OF PATHOLOGY AND GENOMIC MEDICINE Nitrite, UA Negative Negative [facility] DEPARTMENT OF PATHOLOGY AND GENOMIC MEDICINE Urobilinogen, UA Negative <2.0 [facility] DEPARTMENT OF PATHOLOGY AND GENOMIC MEDICINE Leukocyte esterase, UA Negative Negative [facility] DEPARTMENT OF PATHOLOGY AND GENOMIC MEDICINE Epithelial cells, UA Few /HPF [facility] DEPARTMENT OF PATHOLOGY AND GENOMIC MEDICINE Round epithelial cells, Few 0 - 1 /HPF [facility] DEPARTMENT OF PATHOLOGY AND GENOMIC MEDICINE WBC, UA 0-5 0 - 1 /HPF [facility] DEPARTMENT OF PATHOLOGY AND GENOMIC MEDICINE RBC, UA 0-5 0 - 5 /HPF [facility] DEPARTMENT OF PATHOLOGY AND GENOMIC MEDICINE Bacteria, UA Trace None seen [facility] DEPARTMENT OF PATHOLOGY AND GENOMIC MEDICINE Yeast, UA None seen [facility] DEPARTMENT OF PATHOLOGY AND GENOMIC MEDICINE Yeast with pseudohyphae, None seen [facility] PATHOLOGY AND GENOMIC MEDICINE Specimen Urine Performing Organization Address City/State/Zipcode Phone Number [facility] [place] [address] [address] PATHOLOGY AND GENOMIC MEDICINE * CT Abdomen Pelvis Wo Contrast (03/31/2018 8:55 PM CDT) Narrative Performed At EXAMINATION:CT ABDOMEN PELVIS WO [...] 3.Enlarged fatty liver. 4.Additional findings as above. [facility]-[id number] Procedure Note Interface, Radiology Results Incoming - [...] fatty liver. 4. Additional findings as above. [facility]-[id number] Performing Organization Address City/State/Zipcode Phone Number [facility] [address] [place] [address] * Lactic acid level (03/31/2018 8:00 PM CDT) Only the most recent of 2 results within the time period is included. Lactic acid 1.3 0.5 - 2.2 mmol/L [facility] DEPARTMENT OF PATHOLOGY AND GENOMIC MEDICINE Specimen Plasma specimen Performing Organization Address City/[facility]/Zipcode Phone Number [address] [place] [phone] PATHOLOGY AND GENOMIC MEDICINE * Urine drugs of abuse screen (03/31/2018 4:05 PM CDT) Amphetamine screen, urine Negative [facility] DEPARTMENT OF PATHOLOGY AND GENOMIC MEDICINE Methamphetamine screen, Negative [facility] DEPARTMENT OF urine PATHOLOGY AND GENOMIC MEDICINE Barbiturate screen, urine Negative [facility] DEPARTMENT OF PATHOLOGY AND GENOMIC MEDICINE Benzodiazepine screen, Negative [facility] DEPARTMENT OF urine PATHOLOGY AND GENOMIC MEDICINE Cocaine screen, urine Negative [facility] DEPARTMENT OF PATHOLOGY AND GENOMIC MEDICINE Methadone screen, urine nt [facility] DEPARTMENT OF PATHOLOGY AND GENOMIC MEDICINE Opiates screen, urine Positive (A) [facility] DEPARTMENT OF PATHOLOGY AND GENOMIC MEDICINE Phencyclidine screen, nt [facility] DEPARTMENT OF urine PATHOLOGY AND [facility] MEDICINE Cannabinoid screen, urine Negative [facility] DEPARTMENT OF PATHOLOGY AND [facility] MEDICINE Tricyclic screen, urine nt [facility] DEPARTMENT OF Comment: PATHOLOGY AND Drug screen minimum [facility] concentration of detectability Amphetamines 1000 ng/mL Methamphetamines [...] purposes only. Specimen Urine Performing Organization Address [facility] Phone Number [address] [place] [address] PATHOLOGY AND GENOMIC MEDICINE * Blood culture, aerobic & anaerobic (03/31/2018 2:40 PM CDT) Only the most recent of 2 results within the time period is included. Blood culture isolate No growth after 5 days of [facility] DEPARTMENT OF incubation. PATHOLOGY AND Comment: GENOMIC MEDICINE Specimen Information Specimen Source: Blood Specimen Site: left lower arm Specimen Blood Performing Organization Address [facility] Phone Number [facility] DEPARTMENT OF [address] [place] [phone] PATHOLOGY AND GENOMIC MEDICINE * Hemoglobin A1c (03/31/2018 2:40 PM CDT) Hemoglobin A1C 10.0 (H) 4.0 - 6.0 % [facility] DEPARTMENT OF Comment: PATHOLOGY AND GENOMIC MEDICINE Less than 6% - Goal of therapy for Type II Diabetes Less than 7%-Goal of therapy for Type I Diabetes Less than 8%-Accepta ble control for Type I or Type II Diabetes Greater than 8%-Unacceptabl e control; action indicated. ([id number]) Specimen Blood Performing Organization Address [facility] Phone Number [address] [place] [address] PATHOLOGY AND GENOMIC MEDICINE * Prothrombin time with INR (03/31/2018 2:30 PM CDT) Prothrombin time 13.6 12.0 - 15.0 sec [facility] DEPARTMENT OF PATHOLOGY AND GENOMIC MEDICINE INR 1.0 [facility] DEPARTMENT OF Comment: PATHOLOGY AND The International Normalized GENOMIC MEDICINE Ratio (INR) is a therapeutic monitoring tool for patients who are stable on oral anticoagulant therapy. An INR of 2.0-3.0 is suggested for deep vein thrombosis/pulmonary embolism. Specimen Blood Performing Organization Address [facility] Phone Number [address] [place] [address] PATHOLOGY AND [facility] * B natriuretic peptide (03/31/2018 2:30 PM CDT) BNP 1 0 - 100 pg/mL [facility] DEPARTMENT OF PATHOLOGY AND GENOMIC MEDICINE Specimen Blood Performing Organization [facility] Number [address] [place] [address] PATHOLOGY AND GENOMIC MEDICINE * Beta hydroxybutyrate (03/31/2018 2:10 PM CDT) Beta hydroxybutyrate 6.13 (H) 0.02 - 0.27 mmol/L [facility] DEPARTMENT OF PATHOLOGY AND GENOMIC MEDICINE Specimen Serum Performing Organization [facility] [place] [address] PATHOLOGY AND GENOMIC MEDICINE * Thyroid stimulating hormone (03/31/2018 2:10 PM CDT) TSH 0.83 0.27 - 4.20 uIU/mL [facility] DEPARTMENT OF PATHOLOGY AND GENOMIC MEDICINE Specimen Plasma specimen Performing Organization Address [facility] Number [address] [place] [address] PATHOLOGY AND [facility] * Magnesium level (03/31/2018 2:10 PM CDT) Magnesium 1.9 1.6 - 2.6 mg/dL [facility] DEPARTMENT OF PATHOLOGY AND GENOMIC MEDICINE Specimen Plasma specimen Performing Organization [facility] Number [address] [place] [address] PATHOLOGY AND [facility] MEDICINE * Lipase level (03/31/2018 2:10 PM CDT) Lipase 127 (H) 13 - 60 U/L [facility] DEPARTMENT OF PATHOLOGY AND GENOMIC MEDICINE Specimen Plasma specimen Performing Organization Address [facility] Phone Number [address] [place] [address] PATHOLOGY AND GENOMIC MEDICINE * Creatine kinase, total (CPK) (03/31/2018 2:10 PM CDT) Creatine kinase 40 39 - 308 U/L [facility] DEPARTMENT OF PATHOLOGY AND GENOMIC MEDICINE Specimen Plasma specimen Performing Organization Address [facility] Phone Number [address] [place] [address] PATHOLOGY AND [facility] MEDICINE * Amylase level (03/31/2018 2:10 PM CDT) Amylase 96 (H) 13 - 73 U/L [facility] DEPARTMENT OF PATHOLOGY AND GENOMIC MEDICINE Specimen Plasma specimen Performing Organization Address [facility] Phone Number [address] [place] [address] PATHOLOGY AND GENOMIC MEDICINE * Alcohol level, blood (03/31/2018 2:10 PM CDT) Alcohol None Detected mg/dL [facility] DEPARTMENT OF Comment: PATHOLOGY AND Normal GENOMIC MEDICINE None Detected Legal Intoxication in [place]80 mg/dL (0.08%) - Whole Blood Toxic Concentration 200 mg/dL (0.2%) Potentially Fatal3 50 - 500 mg/dL (0.35 - 0.5%) Alcohol percent None Detected % [facility] DEPARTMENT OF PATHOLOGY AND GENOMIC MEDICINE Specimen Plasma specimen Performing Organization Address [facility] Phone Number [address] [place] [address] PATHOLOGY AND GENOMIC MEDICINE * Lipid panel (03/31/2018 2:10 PM CDT) Cholesterol 292 (H) <200 mg/dL [facility] DEPARTMENT OF PATHOLOGY AND GENOMIC MEDICINE Triglycerides 1,577 (A) <150 mg/dL [facility] DEPARTMENT OF PATHOLOGY AND GENOMIC MEDICINE HDL cholesterol 16 (L) >40 mg/dL [facility] DEPARTMENT OF PATHOLOGY AND GENOMIC MEDICINE LDL cholesterol 30Comment: Result obtained by <100 mg/dL [facility] DEPARTMENT OF direct LDL measurement PATHOLOGY AND GENOMIC MEDICINE Lipid panel SeeBelow [facility] DEPARTMENT OF interpretation Comment: PATHOLOGY AND [...] specimen Performing Organization Address City/State/Zipcode Phone Number [facility] [address] [place] [address] PATHOLOGY AND [place] [facility] * Comprehensive metabolic panel (03/31/2018 2:10 PM CDT) Sodium 134 (L) 135 - 148 mEq/L [facility] DEPARTMENT OF PATHOLOGY AND [place] [facility] Potassium 4.3 3.5 - 5.0 mEq/L [facility] DEPARTMENT OF PATHOLOGY AND [place] [facility] Chloride 99 98 - 112 mEq/L [facility] DEPARTMENT OF PATHOLOGY AND [place] [facility] CO2 14 (LL) 24 - 31 mEq/L [facility] DEPARTMENT OF Comment: PATHOLOGY AND Results called to and read [facility] back by ALLISON [id number] 815:[id number] by JAlessandro. Anion gap 21 (H) 7 - 15 mEq/L [facility] DEPARTMENT OF Comment: PATHOLOGY AND Starting from February [facility] , anion gap calculation no longer incorporates potassium. Please note the change. BUN 7 6 - 20 mg/dL [facility] DEPARTMENT OF PATHOLOGY AND [place] MEDICINE Creatinine 0.7 0.7 - 1.2 mg/dL [facility] DEPARTMENT OF PATHOLOGY AND [place] [facility]ICINE Glucose 240 (H) 65 - 99 mg/dL [facility] DEPARTMENT OF PATHOLOGY AND [place] MEDICINE Calcium 8.6 8.3 - 10.2 mg/dL [facility] DEPARTMENT OF PATHOLOGY AND GENOMIC MEDICINE Protein 7.3 6.3 - 8.3 g/dL [facility] DEPARTMENT OF Comment: PATHOLOGY AND GENOMIC MEDICINE 4.6-7.0 g/dL 1 week 4.4-7.6 g/dL 7 months-1year 5.1-7.3 g/dL 1-2 years5.6-7 .5 g/dL >3 years6.0-8 .0 g/dL 18-150 6.3-8.3 g/dL Albumin 4.1 3.5 - 5.0 g/dL [facility] DEPARTMENT OF PATHOLOGY AND GENOMIC MEDICINE A/G ratio 1.3 0.7 - 3.8 [facility] DEPARTMENT OF PATHOLOGY AND GENOMIC MEDICINE Alkaline phosphatase 87 40 - 129 U/L [facility] DEPARTMENT OF PATHOLOGY AND GENOMIC MEDICINE AST NPComment: DUE TO SPECIMEN 10 - 50 U/L [facility] DEPARTMENT OF LIPEMIA UNABLE TO ANALYZE PATHOLOGY AND GENOMIC MEDICINE ALT NIGHT MANAGER 5 - 50 U/L [facility] DEPARTMENT OF PATHOLOGY AND GENOMIC MEDICINE Total bilirubin 0.5 0.0 - 1.2 mg/dL [facility] DEPARTMENT OF PATHOLOGY AND GENOMIC MEDICINE Specimen Plasma specimen Performing Organization Address City/State/Zipcode Phone Number [facility] [place] [address] [place] [address] PATHOLOGY AND GENOMIC MEDICINE after 01/06/2018 Insurance Payer Benefit Subscriber ID Type Phone Address Plan / Group BCBS BCBS OUT xxxxxxxxxxxxxxx PPO OF STATE (Home) [place] [address] Advance Directives Patient has advance care planning documents, and code status on file. For more i nformation, please contact: [place] [address] [place] [address] Date Inactivated Comments Code Status Date Activated 04/02/2018 8:47 PM Full Code 03/31/2018 2:15 PM Code Status decision reached by: Patient
[2019-01-07] MEDS ORDERED: ASPIRIN 81 MG CHEW TAB PO ONE (23:00)
[2019-01-07 23:37] LABS: BASOPHILS # (AUTO) 0.1 (0.0-0.1); BASOPHILS % 0.7 % (0.0-1.0); EOSINOPHILS # (AUTO) 0.2 (0.0-0.4); EOSINOPHILS % 1.3 % (0.0-6.0); HEMATOCRIT 47.2 % (38.2-49.6); HEMOGLOBIN 18.5 g/dL (14.0-18.0); LYMPHOCYTES # (AUTO) 3.8 (1.0-3.2); LYMPHOCYTES % 25.9 % (18.0-39.1); MEAN CORPUSCULAR HEMOGLOBIN 32.6 pg (28-32); MEAN CORPUSCULAR HGB CONC 39.2 g/dL (31-35); MEAN CORPUSCULAR VOLUME 83.1 fL (81-99); MONOCYTES % 6.9 % (4.4-11.3); NEUTROPHILS # (AUTO) 9.3 (2.1-6.9); NEUTROPHILS % 63.6 % (38.7-80.0); PLATELET COUNT 272 x10e3/uL (140-360); RED BLOOD COUNT 5.68 x10e6/uL (4.3-5.7); RED CELL DISTRIBUTION WIDTH 13.3 % (11.7-14.4)
[2019-01-08] VITALS (8 sets, daily range): BP systolic 134–155; BP diastolic 70–95
[2019-01-08 00:02] LABS: ALBUMIN 4.6 g/dL (3.5-5.0); ALBUMIN/GLOBULIN RATIO 0.7 (0.8-2.0); ALKALINE PHOSPHATASE 96 IU/L (40-150); ANION GAP 23.7 mmol/L (8-16); BLOOD UREA NITROGEN 13 mg/dL (7-26); BUN/CREATININE RATIO 10 (6-25); CALCIUM 9.8 mg/dL (8.4-10.2); CARBON DIOXIDE 19 mmol/L (22-29); CHLORIDE 95 mmol/L (98-107); CREATINE KINASE 47 IU/L (30-200); CREATININE, SERUM 1.33 mg/dL (0.72-1.25); EST GLOMERULAR FILTRATION RATE > 60 ML/MIN (60-); GLUCOSE 311 mg/dL (74-118); LIPASE 419 U/L (8-78)
[2019-01-08 00:03] LABS: POTASSIUM 4.7 mmol/L (3.5-5.1); SODIUM 133 mmol/L (136-145)
[2019-01-08 00:14] LABS: ALANINE AMINOTRANSFERASE 30 IU/L (0-55)
[2019-01-08] MEDS ORDERED: IOPAMIDOL 370 MG/ML 200 ML INFUS..BTL INJ ONE (00:36)
[2019-01-08] MEDS ORDERED: SODIUM CHLORIDE 0.9% 50ML 50 ML ONE (00:36)
--- NOTE | 2019-01-08 00:59 | Diagnostic Imaging Report ---
EXAM: CT Abdomen and Pelvis WITH contrast INDICATION: Abdominal pain. ^abd pain ^[id number] ^[id number]: None. TECHNIQUE: Abdomen and pelvis were scanned utilizing a multidetector helical scanner from the lung base to the pubic symphysis after administration of IV contrast. Coronal and sagittal reformations were obtained. Routine protocol was performed. Scan was performed when during portal venous phase. IV CONTRAST: 100 mL of Isovue 370 ORAL CONTRAST: Water COMPLICATIONS: None RADIATION DOSE: Total DLP: 560.1 mGy*cm Estimated effective dose: (DLP x 0.015 x size factor) mSv CTDIvol has been reviewed. It is below the limits set by the Radiation Protocol Committee (RPC). FINDINGS: LINES and TUBES: None. LOWER THORAX: Unremarkable HEPATOBILIARY: The liver is diffuse hypodense compared to the spleen, consistent with diffuse hepatic diffuse hepatic steatosis. No suspicious focal hepatic lesions. No biliary ductal dilation. GALLBLADDER: No radio-opaque stones or sludge. No wall thickening. SPLEEN: No splenomegaly. PANCREAS: Mild peripancreatic stranding in the region of the mid to distal body. No focal masses or ductal dilatation. No organized fluid collections or pancreatic parenchymal hypoenhancement. ADRENALS: No adrenal nodules KIDNEYS/URETERS: Kidneys enhance symmetrically. No hydronephrosis. No cystic or solid mass lesions. No stones. GI TRACT: No abnormal distention, wall thickening, or evidence of bowel obstruction. There are diverticula within the colon without evidence of diverticulitis. Appendix is normal. PELVIC ORGANS/BLADDER: Unremarkable. LYMPH NODES: No lymphadenopathy. VESSELS: Unremarkable. Portal, splenic, and superior mesenteric veins are patent. PERITONEUM / RETROPERITONEUM: No free air or fluid. BONES: Unremarkable. SOFT TISSUES: Unremarkable. IMPRESSION: Acute edematous interstitial pancreatitis. No pseudocysts or necrosis. Signed by: DR. Haresh Bradley MD on 01/08/2019 12:55 AM
[2019-01-08] MEDS ORDERED: MORPHINE SULFATE 2 MG/ML SYR 1ML IV PRN (01:15)
[2019-01-08] MEDS ORDERED: SODIUM CHLORIDE 0.9% 1000ML 1,000 ML IV SCH (01:15)
--- OUTSIDE RECORDS SUMMARY | 2019-01-08 01:49 | XMS REPORT | Clinical Summary ---
Author Author [facility] Organization [facility] Address Unknown Phone Unavailable Care Team Providers Care Administration Manager Name Role Phone Amador Samayoa MD PCP [...] without long-term current use of insulin 03/31/2018 [facility] General Internal Medicine - Encounter 04/02/2018 after 01/07/2018 Family History Medical History Relation Name Comments [...] 03/31/2018 W/AUTO DIFF 2:10 PM CDT after 01/07/2018 Results * Estimated GFR (04/02/2018 1:51 PM CDT) Only the most recent of 5 results within the time period is included. GFR Non Af Amer >90 mL/min/1.73 m2 [facility] GFR Af Amer >90 mL/min/1.73 m2 [facility] Comment: PATHOLOGY AND Chronic kidney [...] specimen Performing Organization Address City/State/Zipcode [place] [address] [place] [address] PATHOLOGY AND GENOMIC MEDICINE * Basic metabolic panel (04/02/2018 1:51 PM CDT) Only the most recent of 4 results within the time period is included. Sodium 138 135 - 148 mEq/L [facility] Potassium 4.5 3.5 - 5.0 mEq/L [facility] Chloride 98 98 - 112 mEq/L [facility] CO2 29 24 - 31 mEq/L [facility] Anion gap 11 7 - 15 mEq/L [facility] Comment: PATHOLOGY AND Starting from February [facility] , anion gap calculation no longer incorporates potassium. Please note the change. BUN 5 (L) 6 - 20 mg/dL [facility] Creatinine 0.7 0.7 - 1.2 mg/dL [facility] Glucose 229 (H) 65 - 99 mg/dL [facility] PATHOLOGY AND GENOMIC MEDICINE Calcium 9.6 8.3 - 10.2 mg/dL [facility] OF PATHOLOGY AND [employer] MEDICINE Specimen Plasma specimen Performing Organization Address [facility] Phone Number [address] [place] [address] PATHOLOGY [facility] * POC glucose (04/02/2018 11:25 AM CDT) Only the most recent of 12 results within the time period is included. POC glucose 175 (H) 65 - 99 mg/dL [facility] Comment: PATHOLOGY AND Meter ID: [id number] [facility] Commercial Diver: Sammy Thornton Performing Organization Address City/[facility] Phone Number [address] [place] [phone] [facility] * CBC with platelet and differential (04/01/2018 9:33 AM CDT) Only the most recent of 2 results within the time period is included. WBC 12.14 (H) 4.50 - 11.00 k/uL [facility] RBC 4.88 4.40 - 6.00 m/uL [facility]IC[facility] HGB 14.7 14.0 - 18.0 g/dL [facility] HCT 42.2 41.0 - 51.0 % [facility] MCV 86.5 82.0 - 100.0 fL [facility] MCH 30.1 27.0 - 34.0 pg [facility] MCHC 34.8 31.0 - 37.0 g/dL [facility] RDW - SD 45.7 37.0 - 55.0 fL [facility] OF PATHOLOGY AND GENOMIC MEDICINE MPV 11.2 8.8 - 13.2 fL [facility] Platelet count 171 150 - 400 k/uL [facility] Nucleated RBC 0.00 /100 WBC [facility] Neutrophils 74.1 (H) 39.0 - 69.0 % [facility] Lymphocytes 14.4 (L) 25.0 - 45.0 % [facility] Monocytes 9.1 0.0 - 10.0 % [facility] Eosinophils 1.4 0.0 - 5.0 % [facility] Basophils 0.3 0.0 - 1.0 % [facility] Specimen Blood Performing Organization Address City/State/Zipcode Phone Number [place] [phone] [place] [address] PATHOLOGY AND GENOMIC MEDICINE * Urinalysis, automated with microscopy (04/01/2018 8:47 AM CDT) Color, UA Yellow [facility] Appearance, UA Clear [facility] Specific gravity, UA 1.023 1.001 - 1.035 [facility] pH, UA 5.0 5.0 - 8.5 [facility] Protein, UA 2+ (A) Negative [facility] Glucose, UA 3+ (A) Negative [facility] Ketones, UA 2+ (A) Negative [facility] Bilirubin, UA Negative Negative [facility] Blood, UA Small (A) Negative [facility] Nitrite, UA Negative Negative [facility] Urobilinogen, UA Negative <2.0 [facility] Leukocyte esterase, UA Negative Negative [facility] Epithelial cells, UA Few /HPF [facility] Round epithelial cells, Few 0 - 1 /HPF [facility] WBC, UA 0-5 0 - 1 /HPF [facility]IC[facility] RBC, UA 0-5 0 - 5 /HPF [facility] Bacteria, UA Trace None seen [facility] Yeast, UA None seen [facility] Yeast with pseudohyphae, None seen [facility] PATHOLOGY AND GENOMIC MEDICINE Specimen Urine Performing Organization Address City/State/Zipcode [place] [address] [place] [address] PATHOLOGY AND GENOMIC MEDICINE * CT Abdomen [...] 3.Enlarged fatty liver. 4.Additional findings as above. [facility]-[id number] Procedure Note Interface, Radiology Results Incoming - [...] fatty liver. 4. Additional findings as above. [facility]-[id number] Performing Organization Address City/State/Zipcode Phone Number [facility] [address] [place] [address] * Lactic acid level (03/31/2018 8:00 PM CDT) Only the most recent of 2 results within the time period is included. Lactic acid 1.3 0.5 - 2.2 mmol/L [facility]IC[facility] Specimen Plasma specimen Performing Organization Address City/[facility]/Zipcode Phone Number [address] [place] [phone] PATHOLOGY AND GENOMIC MEDICINE * Urine drugs of abuse screen (03/31/2018 4:05 PM CDT) Amphetamine screen, urine Negative [facility] Methamphetamine screen, Negative [facility] urine PATHOLOGY AND GENOMIC MEDICINE Barbiturate screen, urine Negative [facility] Benzodiazepine screen, Negative [facility] urine PATHOLOGY AND GENOMIC MEDICINE Cocaine screen, urine Negative [facility] Methadone screen, urine nt [facility] Opiates screen, urine Positive (A) [facility] MEDIC[facility] Phencyclidine screen, nt [facility] urine PATHOLOGY AND [facility] MEDICINE Cannabinoid screen, urine Negative [facility] AND [facility] MEDICINE Tricyclic screen, urine nt [facility] Comment: PATHOLOGY AND Drug screen minimum [facility] concentration of detectability Amphetamines 1000 ng/mL Methamphetamines [...] purposes only. Specimen Urine Performing Organization Address [facility] Phone Number [address] [place] [address] PATHOLOGY AND GENOMIC MEDICINE * Blood culture, aerobic & anaerobic (03/31/2018 2:40 PM CDT) Only the most recent of 2 results within the time period is included. Blood culture isolate No growth after 5 days of [facility] DEPARTMENT OF incubation. PATHOLOGY AND Comment: GENOMIC MEDICINE Specimen Information Specimen Source: Blood Specimen Site: left lower arm Specimen Blood Performing Organization Address [facility] Phone Number [facility] DEPARTMENT OF [address] [place] [address] PATHOLOGY AND GENOMIC MEDICINE * Hemoglobin A1c (03/31/2018 2:40 PM CDT) Hemoglobin A1C 10.0 (H) 4.0 - 6.0 % [facility] Comment: PATHOLOGY AND GENOMIC MEDICINE Less than 6% - Goal of therapy for Type II Diabetes Less than 7%-Goal of therapy for Type I Diabetes Less than 8%-Accepta ble control for Type I or Type II Diabetes Greater than 8%-Unacceptabl e control; action indicated. ([id number]) Specimen Blood Performing Organization Address [facility] Phone Number [address] [place] [address] PATHOLOGY AND GENOMIC MEDICINE * Prothrombin time with INR (03/31/2018 2:30 PM CDT) Prothrombin time 13.6 12.0 - 15.0 sec [facility]IC MEDICINE INR 1.0 [facility] Comment: PATHOLOGY AND The International Normalized GENOMIC MEDICINE Ratio (INR) is a therapeutic monitoring tool for patients who are stable on oral anticoagulant therapy. An INR of 2.0-3.0 is suggested for deep vein thrombosis/pulmonary embolism. Specimen Blood Performing Organization Address [facility] Phone Number [address] [place] [address] PATHOLOGY AND [facility] * B natriuretic peptide (03/31/2018 2:30 PM CDT) BNP 1 0 - 100 pg/mL [facility]OMIC MEDICINE Specimen Blood Performing Organization [facility] Number [address] [place] [address] PATHOLOGY AND GENOMIC MEDICINE * Beta hydroxybutyrate (03/31/2018 2:10 PM CDT) Beta hydroxybutyrate 6.13 (H) 0.02 - 0.27 mmol/L [facility] DEPARTMENT OF PATHOLOGY AND GENOMIC MEDICINE Specimen Serum Performing Organization [facility] [address] PATHOLOGY AND GENOMIC MEDICINE * Thyroid stimulating hormone (03/31/2018 2:10 PM CDT) TSH 0.83 0.27 - 4.20 uIU/mL [facility] GENOMIC MEDICINE Specimen Plasma specimen Performing Organization Address [facility] Number [address] [place] [address] PATHOLOGY AND [facility] * Magnesium level (03/31/2018 2:10 PM CDT) Magnesium 1.9 1.6 - 2.6 mg/dL [facility] AND GENOMIC MEDICINE Specimen Plasma specimen Performing Organization [facility] Number [address] [place] [address] PATHOLOGY AND [facility] MEDICINE * Lipase level (03/31/2018 2:10 PM CDT) Lipase 127 (H) 13 - 60 U/L [facility] AND GENOMIC MEDICINE Specimen Plasma specimen Performing Organization Address [facility] Phone Number [address] [place] [address] PATHOLOGY AND GENOMIC MEDICINE * Creatine kinase, total (CPK) (03/31/2018 2:10 PM CDT) Creatine kinase 40 39 - 308 U/L [facility] AND GENOMIC MEDICINE Specimen Plasma specimen Performing Organization Address [facility] Phone Number [address] [place] [address] PATHOLOGY AND [facility] MEDICINE * Amylase level (03/31/2018 2:10 PM CDT) Amylase 96 (H) 13 - 73 U/L [facility] AND GENOMIC MEDICINE Specimen Plasma specimen Performing Organization Address [facility] Phone Number [address] [place] [address] PATHOLOGY AND GENOMIC MEDICINE * Alcohol level, blood (03/31/2018 2:10 PM CDT) Alcohol None Detected mg/dL [facility] Comment: PATHOLOGY AND Normal GENOMIC MEDICINE None Detected Legal Intoxication in [place]80 mg/dL (0.08%) - Whole Blood Toxic Concentration 200 mg/dL (0.2%) Potentially Fatal3 50 - 500 mg/dL (0.35 - 0.5%) Alcohol percent None Detected % [facility] GENOMIC MEDICINE Specimen Plasma specimen Performing Organization Address [facility] Phone Number [address] [place] [address] PATHOLOGY AND GENOMIC MEDICINE * Lipid panel (03/31/2018 2:10 PM CDT) Cholesterol 292 (H) <200 mg/dL [facility]IC MEDICINE Triglycerides 1,577 (A) <150 mg/dL [facility]OMIC MEDICINE HDL cholesterol 16 (L) >40 mg/dL [facility]OMIC MEDICINE LDL cholesterol 30Comment: Result obtained by <100 mg/dL [facility] direct LDL measurement PATHOLOGY AND GENOMIC MEDICINE Lipid panel SeeBelow [facility] interpretation Comment: PATHOLOGY AND Total [...] specimen Performing Organization Address City/State/Zipcode Phone Number [facility] [address] [place] [address] PATHOLOGY AND [employer] [facility] * Comprehensive metabolic panel (03/31/2018 2:10 PM CDT) Sodium 134 (L) 135 - 148 mEq/L [facility]OLOGY AND [employer] [facility] Potassium 4.3 3.5 - 5.0 mEq/L [facility]OLOGY AND [employer] [facility] Chloride 99 98 - 112 mEq/L [facility]OLOGY AND [employer] [facility] CO2 14 (LL) 24 - 31 mEq/L [facility] Comment: PATHOLOGY AND Results called to and read [facility] back by ALLISON AN,[id number] 815:40 by JAlessandro. Anion gap 21 (H) 7 - 15 mEq/L [facility] Comment: PATHOLOGY AND Starting from February [facility] , anion gap calculation no longer incorporates potassium. Please note the change. BUN 7 6 - 20 mg/dL [facility] PATHOLOGY AND [employer] MEDICINE Creatinine 0.7 0.7 - 1.2 mg/dL [facility]Y AND [employer] MEDICINE Glucose 240 (H) 65 - 99 mg/dL [facility] PATHOLOGY AND [employer] MEDICINE Calcium 8.6 8.3 - 10.2 mg/dL [facility] PATHOLOGY AND GENOMIC MEDICINE Protein 7.3 6.3 - 8.3 g/dL [facility] Comment: PATHOLOGY AND GENOMIC MEDICINE 4.6-7.0 g/dL 1 week 4.4-7.6 g/dL 7 months-1year 5.1-7.3 g/dL 1-2 years5.6-7 .5 g/dL >3 years6.0-8 .0 g/dL 18-150 6.3-8.3 g/dL Albumin 4.1 3.5 - 5.0 g/dL [facility] AND GENOMIC MEDICINE A/G ratio 1.3 0.7 - 3.8 [facility]OLOGY AND GENOMIC MEDICINE Alkaline phosphatase 87 40 - 129 U/L [facility] PATHOLOGY AND GENOMIC MEDICINE AST NPComment: DUE TO SPECIMEN 10 - 50 U/L [facility] LIPEMIA UNABLE TO ANALYZE PATHOLOGY AND GENOMIC MEDICINE ALT SUPERVISOR ENGINE ASSEMBLY 5 - 50 U/L [facility] PATHOLOGY AND GENOMIC MEDICINE Total bilirubin 0.5 0.0 - 1.2 mg/dL [facility] AND GENOMIC MEDICINE Specimen Plasma specimen Performing Organization Address City/State/Zipcode [place] [address] [place] [address] PATHOLOGY AND GENOMIC MEDICINE after 01/07/2018 Insurance Payer Benefit Subscriber ID Type Phone Address Plan / Group BCBS BCBS OUT xxxxxxxxxxxxxxx PPO OF STATE (Home) [place] [address] Advance Directives Patient has advance care planning documents, and code status on file. For more i nformation, please contact: Remi [place] [address] [place] [address] Date Inactivated Comments Code Status Date Activated 04/02/2018 8:47 PM Full Code 03/31/2018 2:15 PM Code Status decision reached by: Patient
--- NOTE | 2019-01-08 03:05 | NUR ---
RECEIVED PATIENT FROM THE EMERGENCY ROOM VIA WHEELCHAIR. PATIENT IS ACCOMPANIED BY HIS AND STAFF. ASSISTED IN THE BED. COMPLAINT OF ABDOMINAL PAIN WITH INTENSITY OF 8. NAUSEA AND VOMITING NOTED. CALLED THE PHARMACY FOR VERIFICATION OF MEDICATION.CALL LIGHT WITH IN REACH.
[2019-01-08] MEDS ORDERED: SODIUM CHLORIDE 0.9% 1000ML 1,000 ML ONE (03:16)
[2019-01-08] MEDS ORDERED: PANTOPRAZOLE 40 MG 10ML VIAL IV STA (03:35)
[2019-01-08] MEDS: MORPHINE SULFATE INJ 4 MG/ML INJ 1ML IV PRN ×2 (03:45→08:53)
[2019-01-08] MEDS: ONDANSETRON HCL INJ 2MG/ML 2ML 2 MG/ML VIAL IV PRN ×3 (03:50→15:35)
[2019-01-08] MEDS: LEVOFLOXACIN 500MG/D5W 100ML IV SCH (04:10)
--- NOTE | 2019-01-08 06:58 | NUR ---
REPORT GIVEN TO ONCOMING NURSE.
[2019-01-08] MEDS ORDERED: KETOROLAC TROMETHAMINE 30 MG/ML VIAL IV PRN (08:45)
[2019-01-08] MEDS ORDERED: DEXTROSE 50% SYRINGE 50 ML IV PRN (08:45)
[2019-01-08] MEDS: INSULIN GLARGINE 100 UNITS/ML VIAL SQ SCH ×2 (09:40→16:44)
[2019-01-08] MEDS: SODIUM CHLORIDE 0.9% 1000ML 1,000 ML IV SCH ×5 (09:42→23:32)
[2019-01-08] MEDS: METRONIDAZOLE 500MG/NS 100ML 100 ML IV SCH ×2 (09:44→16:47)
[2019-01-08] MEDS: PANTOPRAZOLE 40 MG 10ML VIAL IV SCH (09:44)
--- NOTE | 2019-01-08 10:12 | NUR ---
Met with patient to confirm his demographics, and to give him Self Pay packet. He states he has BCBS and gave his card to airplane charter clerk in the ED. There are no copies on the chart, or scanned into EMR. Pt states his has his cards and will get copies of them.
[2019-01-08] MEDS ORDERED: LEVEMIR100 UNIT/1 SQ (11:51)
[2019-01-08] MEDS ORDERED: LOPID600 MG PO (11:51)
[2019-01-08] MEDS ORDERED: ACTOS30 MG PO (11:53)
[2019-01-08] MEDS: INSULIN LISPRO 100 UNIT/1 ML 3ML VIAL SQ SCH ×4 (13:34→23:30)
[2019-01-08 14:18] LABS: CHOL/HDL RATIO 16.1 (3.9-4.7); CHOLESTEROL 339 MD/DL (0-199); HDL CHOLESTEROL 21 MG/DL (40-60)
[2019-01-08 14:34] LABS: TRIGLYCERIDES 1883 MG/DL (0-149)
--- NOTE | 2019-01-08 15:24 | Consultation ---
DATE OF CONSULTATION: GASTROENTEROLOGY CONSULTATION REFERRING PHYSICIAN: Dr. Richard. REASON FOR CONSULTATION: Pancreatitis. HISTORY OF PRESENT ILLNESS: Mr. Olson is a pleasant 33-year-old man with below past medical history. He comes in with abdominal pains yesterday after drinking alcohol. 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 He has intra-abdominal pain with radiation to the back, worse with p.o. intake or even drinking liquids. He has nausea, but no vomiting currently. Triglycerides are still pending. PAST MEDICAL HISTORY 1. Pancreatitis. 2. Diabetes. 3. Dyslipidemia. MEDICATIONS: Reviewed, please see [facility] medication reconciliation form. ALLERGIES: REVIEWED, PLEASE SEE [facility] MEDICATION RECONCILIATION FORM. FAMILY HISTORY: Noncontributory. SOCIAL HISTORY: Positive for alcohol. REVIEW OF SYSTEMS: Twelve-system review is positive for that mentioned in HPI, otherwise unremarkable. PHYSICAL EXAMINATION GENERAL: Calm, alert, and pleasant, in no acute distress. HEENT: Pupils are equal, round, and reactive to light. NECK: Supple. LUNGS: Clear. CARDIOVASCULAR: S1, S2. ABDOMEN: Soft. He is tender in the central abdomen. No rebound, guarding, or mass. EXTREMITIES: No clubbing, cyanosis, edema. PSYCH: Calm, cooperative. NEUROLOGIC: Nonfocal. HEME/ONC: No bruising or adenopathy. Electronic health record is reviewed for laboratory and radiologic study as well as history. ASSESSMENT: Acute pancreatitis, recurrent, likely related to alcohol, rule out hypertriglyceridemia. For now, he has a clear liquid diet. He is experienced pancreatitis and is limiting his clear liquid intake to that which he can be comfortable. For now, he is mostly going to take little sips of water and ice chips. We will probably need to advance slowly. In the meantime, we will need to follow up his triglycerides, and he will need to be compliant with no alcohol, low-fat diet, and adequate management of his comorbidities. Thank you very much for asking me to see Mr. Olson. Any questions or concerns, please do not hesitate to contact me. We will follow with you. Job#: [id number] LPA
--- NOTE | 2019-01-08 19:37 | NUR ---
received report from day nurse. patient is resting comfortably in bed. bed is in lowest position and call sales is within reach. will continue to monitor patient.
[2019-01-09] VITALS (8 sets, daily range): BP systolic 118–133; BP diastolic 63–79
[2019-01-09] MEDS: LEVOFLOXACIN 500MG/D5W 100ML IV SCH (01:16)
[2019-01-09] MEDS: METRONIDAZOLE 500MG/NS 100ML 100 ML IV SCH ×3 (02:14→17:35)
[2019-01-09] MEDS: MORPHINE SULFATE INJ 4 MG/ML INJ 1ML IV PRN (05:30)
[2019-01-09] MEDS: SODIUM CHLORIDE 0.9% 1000ML 1,000 ML IV SCH ×4 (05:30→17:25)
[2019-01-09] MEDS: ONDANSETRON HCL INJ 2MG/ML 2ML 2 MG/ML VIAL IV PRN (05:30)
[2019-01-09 06:38] LABS: BASOPHILS % 0.3 % (0.0-1.0); EOSINOPHILS # (AUTO) 0.1 (0.0-0.4); EOSINOPHILS % 1.4 % (0.0-6.0); HEMATOCRIT 40.3 % (38.2-49.6); HEMOGLOBIN 14.2 g/dL (14.0-18.0); LYMPHOCYTES % 19.7 % (18.0-39.1); MEAN CORPUSCULAR HGB CONC 35.2 g/dL (31-35); MONOCYTES % 9.4 % (4.4-11.3); PLATELET COUNT 162 x10e3/uL (140-360); RED BLOOD COUNT 4.74 x10e6/uL (4.3-5.7); RED CELL DISTRIBUTION WIDTH 14.2 % (11.7-14.4)
--- NOTE | 2019-01-09 06:55 | NUR ---
report given to day nurse. patient is resting in bed. bed is in lowest position and call sales is within reach.
[2019-01-09 07:03] LABS: ALANINE AMINOTRANSFERASE 17 IU/L (0-55); ALBUMIN 3.2 g/dL (3.5-5.0); ALBUMIN/GLOBULIN RATIO 1.1 (0.8-2.0); ALKALINE PHOSPHATASE 62 IU/L (40-150); BLOOD UREA NITROGEN 6 mg/dL (7-26); BUN/CREATININE RATIO 7 (6-25); CALCIUM 8.4 mg/dL (8.4-10.2); CARBON DIOXIDE 18 mmol/L (22-29); CHLORIDE 107 mmol/L (98-107); CREATININE, SERUM 0.92 mg/dL (0.72-1.25); EST GLOMERULAR FILTRATION RATE > 60 ML/MIN (60-); GLUCOSE 162 mg/dL (74-118); LIPASE 165 U/L (8-78); SODIUM 135 mmol/L (136-145)
--- NOTE | 2019-01-09 07:18 | NUR ---
Rcvd patient in report this am. Patient is asleep in bed at this time. NO s/s of distress noted
[2019-01-09] MEDS: PANTOPRAZOLE 40 MG 10ML VIAL IV SCH (08:34)
[2019-01-09] MEDS: INSULIN LISPRO 100 UNIT/1 ML 3ML VIAL SQ SCH ×4 (08:38→23:30)
[2019-01-09] MEDS: INSULIN GLARGINE 100 UNITS/ML VIAL SQ SCH ×3 (08:38→23:30)
[2019-01-09] MEDS: GEMFIBROZIL 600 MG TAB PO SCH ×2 (08:58→17:25)
--- NOTE | 2019-01-09 10:59 | NUR ---
SPOKE WITH PATIENT GOT COPY OF CARD AND HAND DELIVERED TO SHASHANK IN ADMISSIONS PT HAS BLUE CROSS BLUE SHIELD.
--- NOTE | 2019-01-09 16:21 | NUR ---
Nutrition Screen Note RD Recommendation for Physician: -Rec advancing to low fat/ ADA diet as tolerated -RD provided education on low fat diet on 01/09. Plan of Care: RD following, monitoring for tolerance and adequacy, education Nutrition reason for involvement: MD Consult no reason stated Primary Diagnose(s): pancreatitis PMH: pancreatitis, DM, dyslipidemia Ht: 66in Wt: 211lb BMI: 34.1kg/m2 IBW: 142lb RD Assessment: (01/09) Chart reviewed. Labs and meds reviewed. 33yo M, who was admitted for abdominal pain. Pt reported abdominal pain that comes and goes x 3 days. Pt still has some pain after consuming full liquid diet today. No nausea or vomiting. LBM 01/07. No chewing or swallowing difficulty noted. No recent weight loss reported. Will continue to monitor and follow. Current Diet: full liquid Malnutrition Evaluation (01/09/2019) The patient does not meet criteria for a specified degree of malnutrition at this time. Will re-evaluate at follow-up as appropriate. Diet Education Needs Assessment: Diet education indicated, pt was agreeable with plan. Learner(s): pt Barriers: alcohol consumption Cultural/Language Modifications: None. Pt speaks Tristanian. Readiness: acceptance Method: handouts, explanation Topics: Pancreatitis nutrition therapy Understanding/Compliance: Understood. Need reinforcement. All questions have been answered. Nutrition Care Level: low Signed: Allison Recinos, MS, RD, LD
[2019-01-09] MEDS ORDERED: ATORVASTATIN 20 MG TAB PO SCH (21:00)
--- NOTE | 2019-01-09 21:10 | NUR ---
ASSESSMENT DONE.NO RESP.DISTRESS.NO PAIN VOICED.AMBULATES. VOIDED.BED LOCKED AND IN LOWEST POSITION.PHONE AND CALLLIGHT WITHIN REACH.INSTRUCTED TO CALL FOR ASSISTANCE NEEDED.
[2019-01-10] VITALS: BP 142/81
[2019-01-10] MEDS: SODIUM CHLORIDE 0.9% 1000ML 1,000 ML IV SCH ×2 (00:09→06:28)
[2019-01-10] MEDS: LEVOFLOXACIN 500MG/D5W 100ML IV SCH (00:45)
[2019-01-10] MEDS: METRONIDAZOLE 500MG/NS 100ML 100 ML IV SCH ×2 (02:10→08:28)
--- NOTE | 2019-01-10 06:50 | NUR ---
REPORT GIVEN TO THE ONCOMING RN WALKING ROUNDS DONE.STABLE CONDITION.
[2019-01-10 07:14] LABS: ALANINE AMINOTRANSFERASE 14 IU/L (0-55); ALBUMIN 3.3 g/dL (3.5-5.0); ALBUMIN/GLOBULIN RATIO 0.9 (0.8-2.0); ALKALINE PHOSPHATASE 69 IU/L (40-150); ANION GAP 14.6 mmol/L (8-16); BLOOD UREA NITROGEN 6 mg/dL (7-26); BUN/CREATININE RATIO 7 (6-25); CALCIUM 9.1 mg/dL (8.4-10.2); CARBON DIOXIDE 22 mmol/L (22-29); CHLORIDE 104 mmol/L (98-107); CREATININE, SERUM 0.82 mg/dL (0.72-1.25); EST GLOMERULAR FILTRATION RATE > 60 ML/MIN (60-); GLUCOSE 142 mg/dL (74-118); LIPASE 44 U/L (8-78); POTASSIUM 3.6 mmol/L (3.5-5.1); SODIUM 137 mmol/L (136-145)
--- NOTE | 2019-01-10 07:19 | NUR ---
Rcvd patient report this am. Patient is asleep in bed at this time. No s/s of distress noted.
[2019-01-10 08:12] VITALS: BP 151/97
[2019-01-10] MEDS: PANTOPRAZOLE 40 MG 10ML VIAL IV SCH (08:18)
[2019-01-10] MEDS: GEMFIBROZIL 600 MG TAB PO SCH (08:18)
[2019-01-10] MEDS: INSULIN LISPRO 100 UNIT/1 ML 3ML VIAL SQ SCH (08:23)
[2019-01-10] MEDS: INSULIN GLARGINE 100 UNITS/ML VIAL SQ SCH (08:23)
--- NOTE | 2019-01-10 08:46 | Discharge Summary ---
FINAL DIAGNOSES 1. Acute pancreatitis secondary to noncompliance to diabetes treatment and dyslipidemia treatment. The patient has very high triglycerides. He is noncompliant to his medications. Just recently restarted, and he is also very noncompliant to his insulin treatment. His glycohemoglobin A1c was 11.1. His triglycerides were 1883. 2. Alcoholic-induced pancreatitis. A 33-year-old male noncompliant to his diabetes and triglyceride treatment. On top of that, he went out drinking with his friends and developed acute pancreatitis. No necrosis. No pseudocyst. The patient's blood sugar was very elevated on admission. Currently, is 142. Patient is otherwise stable. Lipase is now normal. Liver enzymes are normal. Patient tolerated his diet. The patient will go home today. Advised the patient to increase his Levemir 4 units twice a day until his sugar is more controlled. The patient will continue his other home medications, including gemfibrozil. Patient is stable and discharged home today. Job#: [id number] AURE
[2019-01-10] MEDS ORDERED: LEVAQUIN500 MG PO (08:52)
[2019-01-10] MEDS ORDERED: LIPITOR20 MG PO (08:52)
[2019-01-10] MEDS ORDERED: TYLENOL WITH C1 EACH PO (08:53)
[2019-01-10] MEDS ORDERED: PROMETHAZINE HC25 M1 PO (08:53)
--- NOTE | 2019-01-10 09:00 | NUR ---
Removed IV at this time. Pressure dressing applied. No bleeding noted
--- NOTE | 2019-01-10 09:30 | NUR ---
Patient is AAox3. Patient tolerating his soft diet. No c/o pain. Lung n[place] clear to auscultation. Bowel sounds present x4. No s/s of distress noted. Left AC IV in place. IV fluids infusing
[2019-01-10 09:50] VITALS: BP 151/97
--- NOTE | 2019-01-10 09:51 | NUR ---
Patient discharged from facility to home. Patient assisted out via staff. Reviewed all discharge paperwork, follow up appts and RX's given. NO s/s of distress noted
== END 2019-01-10 09:51 | disposition home or self-care (01) | DRG 439 ==
LOC: ER 22:44 → ERHOLD 01-08 01:43 → MED/SURG 01-08 03:09 → OBSVTOIN 01-08 08:46
PROVIDERS: ADMIT Internal Medicine; ATTEND Internal Medicine
DX: K85.20 Alcohol induced acute pancreatitis without necrosis or infection (principal); F10.188 Alcohol abuse with other alcohol-induced disorder; E11.65 Type 2 diabetes mellitus with hyperglycemia; Z91.19 Patient's noncompliance with other medical treatment and regimen; Z91.14 Patient's other noncompliance with medication regimen; E78.5 Hyperlipidemia, unspecified
CPT/HCPCS: 36415; 74177; 80053; 80061; 82550; 82553; 82948; 83036; 83690; 84443; 84484; 85025; 96361; 99284; J1815; J1885; J1956; J2270; J2405; J7030; Q9967